=== PATIENT | female | born 1955 | race African-American/Black ===

== ENCOUNTER 2021-08-14 13:43 | Emergency (ER) | payer MEDICARE, OTHER ==
[~2021-08-14] VITALS: Ht 160 cm; Wt 104.3 kg
[~2021-08-14 13:43] MED LIST: ATOR20TA; CALC-30; METH10TA87; METO-158; TRIA25CA; VIT B12
[2021-08-14 15:57] LABS: Basophils # (auto) 0 10 ^3/uL (0-0.2); Basophils % (auto) 0.3 % (0.0-2.0); Eosinophils # (auto) 0.1 10 ^3/uL (0-0.8); Eosinophils % (auto) 1.4 % (0.0-7.0); Hematocrit 39.1 % (36.0-46.0); Hemoglobin 13.3 g/dL (12.2-16.2); Lymphocytes # (auto) 1.8 10 ^3/uL (0.4-5.4); Lymphocytes % (auto) 19.6 % (10.0-50.0); Mean Corpuscular Hemoglobin 30.3 pg (28.0-32.0); Mean Corpuscular Volume 89.2 fL (80.0-100.0); Monocytes # (auto) 0.6 10 ^3/uL (0-1.3); Monocytes % (auto) 6.1 % (0.0-12.0); Neutrophils # (auto) 6.6 10 ^3/uL (1.6-8.6); Neutrophils % (auto) 72.6 % (37.0-80.0); Nucleated Red Blood Cells % 0.1 %; Red Blood Cells 4.39 10^6/uL (4.0-5.20); Red Cell Distribution Width 14.5 % (11.8-14.3); White Blood Cell 9.1 10^3/uL (4.4-10.8)
[2021-08-14 16:10] LABS: Albumin 3.7 g/dL (3.4-5.0); Calcium 9.1 mg/dL (8.5-10.1); Potassium 4.5 mmol/L (3.5-5.1)
[2021-08-14 16:18] LABS: BUN/Creatinine Ratio 15.3; Bilirubin, Total 0.3 mg/dL (0.2-1.0); Total Protein 8.4 g/dL (6.4-8.2)
[2021-08-14 17:12] VITALS: BP 139/73
[2021-08-14 17:14] LABS: Urine Bacteria FEW /hpf (None Seen); Urine Blood Negative /uL (Negative); Urine Hyaline Cast FEW /lpf (0 - 2); Urine Mucus FEW (None Seen); Urine WBC 3 /hpf (0 - 5)
== END 2021-08-14 17:20 | disposition home or self-care (01) ==
LOC: ER 13:43 → EDBD 13:43 → ER 17:20
DX: R55 Syncope and collapse (principal); I10 Essential (primary) hypertension; E03.9 Hypothyroidism, unspecified; E78.5 Hyperlipidemia, unspecified; J45.909 Unspecified asthma, uncomplicated; Z79.899 Other long term (current) drug therapy; Z88.5 Allergy status to narcotic agent
CPT/HCPCS: 36415; 70450; 71045; 72125; 80053; 81001; 83735; 84484; 85025; 93005

== ENCOUNTER 2025-01-23 11:11 | Inpatient (IN) | payer MEDICARE, OTHER ==
[~2025-01-23] VITALS: Ht 160 cm; Wt 113.0 kg
[2025-01-23] VITALS (7 sets, daily range): BP systolic 122–129; BP diastolic 76–82; PULSE 11–90; RESP 11–20; TEMP 97.5–97.6; O2SAT 95–98
[~2025-01-23 11:11] MED LIST changes: -TRIA25CA
--- NOTE | 2025-01-23 11:23 | ED.PDOC ---
Altered Mental Status HPI Comments 69 y.o female with PMHx of DM, HTN, hyperlipidemia, CKF, and thyroid disease, presents to the ED via EMS for an evaluation of a near syncopal episode today at home. Patient was in the kitchen cooking when she developed spontaneous onset generalized weakness and sweats. Patient is unable to recall anything after her symptoms presented. Patient denies any chest pain, SOB, fever, chills, dysuria. Chief Complaint: Syncope Time Seen by MD: 11:09 Primary Care Provider: NONE Reviewed Notes: Nurses Notes, Software Implementation Specialist Notes, Medications, Allergies Allergies: Coded Allergies: Ibuprofen (Verified Allergy, Severe, 01/23/25) Lisinopril (Verified Allergy, Severe, 01/23/25) Codeine (Verified Allergy, Unknown, HALLUCINATE, 08/14/21) Home Meds Reported Medications Metoprolol Tartrate (Metoprolol Tartrate) 50 Mg Tab 12/04/12 Atorvastatin Calcium (Lipitor) 20 Mg Tab 12/04/12 [Calcium] (Calcium) No Conflict Check 12/04/12 Methimazole (Tapazole) 10 Mg Tab 12/04/12 [Vit B12] No Conflict Check 12/04/12 Information Source: Patient, Emergency Med Personnel Mode of Arrival: EMS Severity: Moderate Timing: Hours Duration: Since onset Prehospital treatment: 12 Lead EKG, Geophysical Prospecting Permit Agent Quality: Decreased Alertness, Change in Behavior Recent: Other History of: Diabetes Associated Signs and Symptoms: Other Past Medical History PAST MEDICAL HISTORY: Asthma, CKF, DM, High Lipids, HTN, Thyroid Surgical History: BTL, , Thyroidectomy Surgical History (Other): cataracts FIRMWARE SOFTWARE VERIFICATION ENGINEER History: No Pertinent FIRMWARE SOFTWARE VERIFICATION ENGINEER History Family History Family History: No family hx of DM, No family hx of Heart reginaldo, No family hx of HTN Social History Smoker: Non-Smoker Alcohol: Denies ETOH Use Drugs: Denies Drug Use Lives In: Home Constitutional: reports: malaise, sweats, weakness; denies: chills, diaphoresis, fatigue, fever, others EENTM: denies: blurred vision, double vision, ear bleeding, ear discharge, ear drainage, ear pain, ear ringing, eye pain, eye redness, hearing loss, mouth pain, mouth swelling, nasal discharge, nose bleeding, nose congestion, nose pain, photophobia, tearing, throat pain, throat swelling, voice changes, others Respiratory: denies: cough, hemoptysis, orthopnea, SOB at rest, shortness of breath, SOB with excertion, stridor, wheezing, others Cardiovascular: reports: syncope; denies: chest pain, dizzy spells, diaphoresis, Dyspnea on exertion, edema, irregular heart beat, left arm pain, lightheadedness, palpitations, PND, others Gastrointestinal: denies: abdomen distended, abdominal pain, blood streaked bowels, constipated, diarrhea, dysphagia, difficulty swallowing, hematemesis, melena, nausea, poor appetite, poor fluid intake, rectal bleeding, rectal pain, vomiting, others Genitourinary: denies: abnormal vagina bleeding, burning, dyspareunia, dysuria, flank pain, frequency, hematuria, incontinence, pain, , vagina discharge, urgency, others Neurological: denies: dizziness, fainting, headache, left sided numbness, left sided weakness, numbness, paresthesia, pre-existing deficit, right sided numbness, right sided weakness, seizure, speech problems, tingling, tremors, weakness, others Musculoskeletal: denies: back pain, gout, joint pain, joint swelling, muscle pain, muscle stiffness, neck pain, others Integumetry: denies: bruises, change in color, change in hair/nails, dryness, laceration, lesions, lumps, rash, wounds, others Allergic/Immunocompromised: denies: Difficulty Healing, Frequent Infections, Hives, Itching, others Hematologic/Lymphatic: denies: anemia, blood clots, easy bleeding, easy bruising, swollen glands, others Endocrine: denies: excessive hunger, excessive sweating, excessive thirst, excessive urination, flushing, intolerance to cold, intolerance to heat, unexplained weight gain, unexplained weight loss, others Psychiatric: denies: anxiety, bipolar disorder, depression, hopeless, panic disorder, schizophrenia, sleepless, suicidal, others All Other Systems: Reviewed and Negative Physical Exam General Appearance: Moderate Distress HEENT: Normal ENT Inspection, Pharynx Normal, TMs Normal Neck: Full Range of Motion, Non-Tender, Normal, Normal Inspection Respiratory: Chest Non-Tender, Lungs Clear, No Accessory Muscle Use, No Respiratory Distress, Normal Breath Sounds Cardiovascular: Bradycardia, No Edema, No JVD, No Murmur, No Gallop, Normal Peripheral Pulses Breast Exam: Deferred Gastrointestinal: No Organomegaly, Non Tender, No Pulsatile Mass, Normal Bowel Sounds, Soft Genitalia: Deferred Pelvic: Deferred Rectal: Deferred Extremities: No calf tenderness, Normal capillary refill, Normal inspection, Normal range of motion, Non-tender, No pedal edema Musculoskeletal : Apperance: Normal Neurologic: Alert Cerebellar Function: NOT DONE Reflexes: NOT DONE Skin: Dry, Normal Color, Warm Peripheral Pulses: 3+ Radial (R), 3+ Radial (L) Lymphatic: No Adenopathy EKG EKG : Pulse Rate (adult): 55 Cardiac Rhythm: NSR Was a procedure done? Was a procedure done?: No Differential Diagnosis (ALOC) Differential Diagnosis: Dehydration, Encephalopathy, Hypoxemia, Heart Failure X-Ray, Labs, Meds, VS Vital Signs Date Time Temp Pulse Resp B/P (MAP) Pulse Ox O2 Delivery O2 Flow Rate FiO2 01/23/25 11:23 55 01/23/25 11:16 98.3 68 18 120/75 (90) 96 98.3 01/23/25 11:15 55 Lab Test 01/23/25 11:27 Range/Units White Blood Count 7.7 4.4-10.8 10^3/uL Red Blood Count 4.50 4.0-5.20 10^6/uL Hemoglobin 13.6 12.2-16.2 g/dL Hematocrit 40.1 36.0-46.0 % Mean Corpuscular Volume 89.1 80.0-100.0 fL Mean Corpuscular Hemoglobin 30.2 28.0-32.0 pg Mean Corpuscular Hemoglobin Concent 33.9 32.0-36.0 g/dL Red Cell Distribution Width 14.8 H 11.8-14.3 % Platelet Count 216 140-450 10^3/uL Mean Platelet Volume 7.6 6.9-10.8 fL Neutrophils (%) (Auto) 66.8 37.0-80.0 % Lymphocytes (%) (Auto) 21.1 10.0-50.0 % Monocytes (%) (Auto) 6.9 0.0-12.0 % Eosinophils (%) (Auto) 4.9 0.0-7.0 % Basophils (%) (Auto) 0.3 0.0-2.0 % Neutrophils # (Auto) 5.2 1.6-8.6 10 ^3/uL Lymphocytes # (Auto) 1.6 0.4-5.4 10 ^3/uL Monocytes # (Auto) 0.5 0-1.3 10 ^3/uL Eosinophils # (Auto) 0.4 0-0.8 10 ^3/uL Basophils # (Auto) 0 0-0.2 10 ^3/uL Nucleated Red Blood Cells 0.1 % Sodium Level Pending Potassium Level Pending Chloride Level Pending Carbon Dioxide Level Pending Anion Gap Pending Blood Urea Nitrogen Pending Creatinine Pending Glomerular Filtration Rate Calc Pending BUN/Creatinine Ratio Pending Serum Glucose Pending Calcium Level Pending Troponin I High Sensitivity Pending Patient alert. Complaining of dizziness. Possible syncope prior to coming. Vitals stable. WBC within normal limits. Hemoglobin within normal limits. EKG does show bradycardia. Reviewed her history. Has a risk factors for coronary artery disease. Echocardiogram. Explained to the patient. Continue monitoring. Time of 1ST Reevaluation: 12:00 Reevaluation 1ST: Unchanged Patient Education/Counseling: Diagnosis, Treatment, Prognosis Family Education/Counseling: No Family Present Departure 1 Departure Time of Disposition: 11:58 Impression: Primary Impression: Symptomatic bradycardia Additional Impression: Autonomic disorder Disposition: ADMITTED INPATIENT Admit to: Med Surg Condition: Guarded Critical Care Note Critical Care Time?: Yes (90 min-critical care time only) Critical care comment: Symptomatic bradycardia continue to monitor Stability Stability form required: No Heart Score Heart Score: Heart Score Response (Comments) Value History Slightly Suspicious 0 EKG Normal 0 Age >65 2 Risk Factors No known risk factors 0 Troponin Normal limit 0 Total 2 I personally scribed for BEATRIZ CARRIZALES MD ([email or web address]) on 01/23/25 at 11:23. Electronically submitted by Jackie Bernabe ([facility]). BEATRIZ CARRIZALES MD Jan 23, 2025 11:23
[2025-01-23 11:44] LABS: Basophils # (auto) 0 10 ^3/uL (0-0.2); Basophils % (auto) 0.3 % (0.0-2.0); Eosinophils # (auto) 0.4 10 ^3/uL (0-0.8); Eosinophils % (auto) 4.9 % (0.0-7.0); Hematocrit 40.1 % (36.0-46.0); Hemoglobin 13.6 g/dL (12.2-16.2); Lymphocytes # (auto) 1.6 10 ^3/uL (0.4-5.4); Lymphocytes % (auto) 21.1 % (10.0-50.0); Mean Corpuscular Hemoglobin 30.2 pg (28.0-32.0); Mean Corpuscular Hgb Conc. 33.9 g/dL (32.0-36.0); Mean Corpuscular Volume 89.1 fL (80.0-100.0); Monocytes # (auto) 0.5 10 ^3/uL (0-1.3); Monocytes % (auto) 6.9 % (0.0-12.0); Neutrophils # (auto) 5.2 10 ^3/uL (1.6-8.6); Neutrophils % (auto) 66.8 % (37.0-80.0); Nucleated Red Blood Cells % 0.1 %; Platelet Count (auto) 216 10^3/uL (140-450); Red Cell Distribution Width 14.8 % (11.8-14.3); White Blood Cell 7.7 10^3/uL (4.4-10.8)
[2025-01-23 11:55] LABS: Potassium 4.1 mmol/L (3.5-5.1); Sodium 141 mmol/L (136-145)
[2025-01-23 11:56] LABS: Anion Gap 8 (5-15); Calcium 9.8 mg/dL (8.7-10.4); Carbon Dioxide 24 mmol/L (20-31)
[2025-01-23 12:01] LABS: BUN/Creatinine Ratio 10.4 (10.0-20.0); Blood Urea Nitrogen 22 mg/dL (9-23); Chloride 109 mmol/L (98-107)
[2025-01-23 12:02] LABS: Glucose 158 mg/dL (74-106)
[2025-01-23 12:51] LABS: Urine Bacteria None Seen /hpf (None Seen)
[2025-01-23 13:01] LABS: Urine Blood Negative /uL (Negative); Urine Clarity Clear (Clear); Urine Color Light-Yellow (Yellow); Urine Protein, UAD 1+ (Negative); Urine Specific Gravity 1.027 (1.001-1.035); Urine Squamous Epithelial Cell FEW /hpf (<5); Urine Urobilinogen Normal (Negative); Urine WBC 1 /HPF (0-5)
--- NOTE | 2025-01-23 13:18 | DVHHP2 ---
History of Present Illness Reason for Visit: syncopal episode History of Present Illness 69 yr old graves disease, thyroid disease, htn, dm, ckd stage 4, hld cad denies any surgical history cc pt states had a syncopal episodes today. Patient states that she was in the kitchen getting ready to cook her some food she sta jocy she started feel weak and sweaty prior to the her legs getting weak and then she had fallen. Patient states she did not remember anything after her fall when she do remember being diaphoretic and sweaty prior to the incident patient does admit to she went to [place] yesterday and they did a vascular carotid ultrasound at the hospital she states she did not drink much yesterday at all so she might have gotten a little bit dehydrated and she did not eat breakfast in the morning after sleeping all day so she felt these might contributed to her fall she states she did take her medications for diabetes but when paramedics arrived her glucose was 170 in her blood pressure was good. She also states she usually will have a syncopal episode from low blood pressure patient does see a cooky packer at [facility] she is due to have an echocardiogram in two weeks she currently denies any headache no dizziness. She denies any abdominal pain no vomiting no black stools or blood in her stools when evaluating patient's chart as it appears patient was admitted in February of 2023 for syncopal episode at that time she was on hydrochlorothiazide and they DC that they thought her fall might be related to blood pressure meds at that time she also had an echo completed February 2023 EF 65%. When evaluating labs CBC was unremarkable creatinine was 2.11 glucose 158 otherwise CMP unremarkable troponin was negative UA was unremarkable only shows glucose with these findings we will admit patient for cardiac workup for syncope. Past Medical History Graves disease thyroid disease hypertension diabetes CKD stage 4 hyperlipidemia CAD Past Surgical History denies any surgical history Family History Reviewed, non-contributory to the management of this case. Past Social History The patient lives at home, denies smoking, alcohol or illicit drugs abuse. Review of Systems Constitutional: No: Fever, Chills, Sweats, Weakness, Malaise, Other Eyes: No: Pain, Vision change, Conjunctivae inflammation, Eyelid inflammation, Other, Redness ENT: No: Ear pain, Ear discharge, Nose pain, Nose discharge, Nose congestion, Mouth pain, Mouth swelling, Throat pain, Throat swelling, Other Respiratory: No: Cough, Dry, Shortness of breath, SOB with excertion, Wheezing, Hemoptysis, Pleuritic Pain, Sputum, Wheezing, Other Cardiovascular: No: Chest Pain, Palpitations, Orthopnea, Paroxysmal Noc. Dyspnea, Edema, Lt Headedness, Other Gastrointestinal: No: Nausea, Vomiting, Abdominal Pain, Diarrhea, Constipation, Melena, Hematochezia, Other Genitourinary: No Dysuria, No Frequency, No Incontinence, No Hematuria, No Retention, No Other Musculoskeletal: No: other, neck pain, shoulder pain, arm pain, back pain, hand pain, leg pain, foot pain Skin: No: Rash, Lesions, Jaundice, Bruising, Other Neurological: Weakness, Other (headache ); No: Numbness, Incoordination, Change in speech, Confusion, Seizures Allergies: Coded Allergies: Ibuprofen (Verified Allergy, Severe, 01/23/25) Lisinopril (Verified Allergy, Severe, 01/23/25) Codeine (Verified Allergy, Unknown, HALLUCINATE, 08/14/21) Exam Vital Signs Vital Signs Date Time Temp Pulse Resp B/P (MAP) Pulse Ox O2 Delivery O2 Flow Rate FiO2 01/23/25 12:00 67 01/23/25 11:16 98.3 18 120/75 (90) 96 98.3 General Appearance: Alert, Oriented X3, Cooperative, No acute distress HEENT: Atraumatic, PERRLA, EOMI, Mucous membr. moist/pink Respiratory: Clear to auscultation, Normal air movement Cardiovascular: Regular rate, Normal S1, Normal S2, No murmurs Abdominal: Normal bowel sounds, Soft, No tenderness, No hepatospenomegaly, No masses Extremities: No clubbing, No cyanosis, No edema, Normal pulses, No tenderness/swelling Skin: No rashes, No breakdown, No significant lesion Neuro: Normal gait, Normal speech, Strength at 5/5 X4 ext, Normal tone, Sensation intact, Cranial nerves 3-12 NL Psych/Mental Status: Mental status NL, Mood NL Labs/Xrays I reviewed labs, imaging CT scan abdomen pelvis, EKG and all diagnostic studies on this patient from ED records and the medical chart Labs Test 01/23/25 12:18 01/23/25 11:30 01/23/25 11:27 Range/Units POC Glucose 139 H 70-106 mg/dl Urine Color Light-yellow Yellow Urine Clarity Clear Clear Urine pH 7.0 5.0-9.0 Urine Specific [place] 1.027 1.001-1.035 Urine Protein 1+ H Negative Urine Ketones Negative Negative Urine Blood Negative Negative /uL Urine Nitrite Negative Negative Urine Bilirubin Negative Negative Urine Urobilinogen Normal Negative mg/dL Urine Leukocyte Esterase Negative Negative /uL Urine RBC 1 0 - 4 /hpf Urine Microscopic WBC 1 0-5 /HPF Urine Squamous Epithelial Cells Few <5 /hpf Urine Bacteria None seen None Seen /hpf Urine Glucose 4+ H Normal mg/dL White Blood Count 7.7 4.4-10.8 10^3/uL Red Blood Count 4.50 4.0-5.20 10^6/uL Hemoglobin 13.6 12.2-16.2 g/dL Hematocrit 40.1 36.0-46.0 % Mean Corpuscular Volume 89.1 80.0-100.0 fL Mean Corpuscular Hemoglobin 30.2 28.0-32.0 pg Mean Corpuscular Hemoglobin Concent 33.9 32.0-36.0 g/dL Red Cell Distribution Width 14.8 H 11.8-14.3 % Platelet Count 216 140-450 10^3/uL Mean Platelet Volume 7.6 6.9-10.8 fL Neutrophils (%) (Auto) 66.8 37.0-80.0 % Lymphocytes (%) (Auto) 21.1 10.0-50.0 % Monocytes (%) (Auto) 6.9 0.0-12.0 % Eosinophils (%) (Auto) 4.9 0.0-7.0 % Basophils (%) (Auto) 0.3 0.0-2.0 % Neutrophils # (Auto) 5.2 1.6-8.6 10 ^3/uL Lymphocytes # (Auto) 1.6 0.4-5.4 10 ^3/uL Monocytes # (Auto) 0.5 0-1.3 10 ^3/uL Eosinophils # (Auto) 0.4 0-0.8 10 ^3/uL Basophils # (Auto) 0 0-0.2 10 ^3/uL Nucleated Red Blood Cells 0.1 % Sodium Level 141 136-145 mmol/L Potassium Level 4.1 3.5-5.1 mmol/L Chloride Level 109 H 98-107 mmol/L Carbon Dioxide Level 24 20-31 mmol/L Anion Gap 8 5-15 Blood Urea Nitrogen 22 9-23 mg/dL Creatinine 2.11 H 0.550-1.02 mg/dL Glomerular Filtration Rate Calc 25 >90 mL/min BUN/Creatinine Ratio 10.4 10.0-20.0 Serum Glucose 158 H 74-106 mg/dL Calcium Level 9.8 8.7-10.4 mg/dL Troponin I High Sensitivity < 3 L </=34 ng/L Assessment/Plan Assessment/Plan Acute syncopal episode CT the brain is negative ordered echocardiogram if abnormal consider cards consult reviewed echo from 02/2023 ef 65% Follow-up carotid Doppler ordered Orthostatic vital signs Fall precautions ordered PT eval and treat trop negative, cont to trend trops ekg no stemi ordered IV fluids Fall precautions ordered tsh and mag and phos chronic problems graves disease hypothyroidism will order tsh htn dm ISS ckd stage 3 hld cad fen/ppx diet no gi ppx since no hx of gerds/gi bleed scd ivf gentle hydration plan admit to tele syncope workup Plan discussed with: Patient Date of Service: Jan 23, 2025 Billing Provider: MEY CAMARENA DNP Common Visit Codes: [id number] INP/OBS CARE (HIGH) MEY CAMARENA DNP Jan 23, 2025 13:17
[2025-01-23] MEDS ORDERED: DEXTROSE (50%) 50ML SYRG IV PRN (15:15)
[2025-01-23] MEDS ORDERED: ONDANSETRON HCL 4 MG/2 ML VIAL IV PRN (15:15)
[2025-01-23] MEDS ORDERED: MORPHINE SULFATE INJ 2 MG/ml SYRG IV PRN (15:15)
[2025-01-23] MEDS ORDERED: DOCUSATE SOD 100 MG CAP PO PRN (15:15)
[2025-01-23] MEDS ORDERED: NITROGLYCERIN 0.4 MG SL TAB SL PRN (15:15)
--- NOTE | 2025-01-23 15:53 | DVH ---
EXAM: CT HEAD WITHOUT CONTRAST HISTORY: acute dizziness COMPARISON: CT HEAD WITHOUT CONTRAST on DOS: 03/12/23, HEAD WITHOUT CONTRAST on DOS: 08/14/21 TECHNIQUE: Axial images of the head were obtained and reformatted in coronal and sagittal planes. All CT scans at this medical facility are performed using dose modulation techniques as appropriate t o a performed exam including the following: Automated exposure control was utilized; adjustment of th e MA and/or KV according to patient size; and use of iterative reconstruction technique. CT Dose: CTDI volume is 59.21 mGy. Dose-length product is 1048.36 mGy*cm FINDINGS: There is no evidence of acute intracranial hemorrhage, mass, mass effect midline shift. There is no h ydrocephalus or extra-axial fluid collection. There are patchy chronic microvascular ischemic changes in the supratentorial white matter. Swift-white matter differentiation is maintained. The visualized paranasal sinuses and mastoid air cells are clear. The calvarium is intact. IMPRESSION: 1. No acute intracranial process. HS:Y
[2025-01-23] MEDS: SODIUM CHLORIDE 0.9% 1,000 ML IV SCH (16:00)
[2025-01-23] MEDS: ENOXAPARIN SOD 30 MG/0.3 ML SYRINGE SC SCH (16:01)
[2025-01-23 16:08] LABS: Magnesium 2.2 mg/dL (1.6-2.6)
[2025-01-23 16:09] LABS: Phosphorus 3.6 mg/dL (2.4-5.1)
--- NOTE | 2025-01-23 16:32 | DVH ---
EXAM: US Duplex Bilateral Extracranial Arteries CLINICAL INDICATION: near syncope TECHNIQUE: Real-time duplex ultrasound scan of the extracranial arteries integrating B-mode two-dime nsional vascular structure, Doppler spectral analysis and color flow Doppler imaging. CONTRAST: COMPARISON: US CAROTID DUPLX W COLOR DOP on DOS: 03/13/23 FINDINGS: RIGHT COMMON CAROTID ARTERY: Unremarkable. No occlusion or significant stenosis on color flow and spectral Doppler imaging. Peak systolic velocity in the right common carotid artery (CCA) is 76 cm/s . RIGHT INTERNAL CAROTID ARTERY: Unremarkable. No occlusion or significant stenosis on color flow an d spectral Doppler imaging. Peak systolic velocity in the right internal carotid artery (ICA) is 98 cm/s. RIGHT EXTERNAL CAROTID ARTERY: Unremarkable. No occlusion or significant stenosis on color flow an d spectral Doppler imaging. RIGHT VERTEBRAL ARTERY: Unremarkable. Antegrade flow. RIGHT ICA/CCA RATIO: Unremarkable. The ICA/CCA peak systolic velocity ratio is 1.3 on the right. LEFT COMMON CAROTID ARTERY: Unremarkable. No occlusion or significant stenosis on color flow and s pectral Doppler imaging. Peak systolic velocity in the left common carotid artery (CCA) is 25 cm/s. LEFT INTERNAL CAROTID ARTERY: Peak systolic velocity in the left internal carotid artery (ICA) is 2 99 cm/s. No occlusion or significant stenosis on color flow and spectral Doppler imaging. LEFT EXTERNAL CAROTID ARTERY: Unremarkable. No occlusion or significant stenosis on color flow and spectral Doppler imaging. LEFT VERTEBRAL ARTERY: Unremarkable. Antegrade flow. LEFT ICA/CCA RATIO: The ICA/CCA peak systolic velocity ratio is 11.7 on the left. LYMPH NODES: Unremarkable. No lymphadenopathy. OTHER FINDINGS: . . CAROTID STENOSIS REFERENCE USING IAC CRITERIA: Mild - <50% stenosis. ICA PSV is less than 180 cm/s and plaque or intimal thickening is visible. Moderate - 50-69% stenosis. ICA PSV is 180 to 230 cm/s and plaque is visible. Severe - 70-94% stenosis. ICA PSV is more than 230 cm/s and visible plaque with lumen narrowing is s een. Near occlusion - 95-99% stenosis. ICA PSV is variable and significant plaque with luminal narrowing is seen. Occluded - 100% stenosis. No flow identified. IMPRESSION: 70-94% stenosis in the left internal carotid artery due to atherosclerotic plaque.
[2025-01-23] MEDS: InsuLIN REG 1unit/0.01ml Soln (100units/ml) SC SCH (17:00)
[2025-01-23] MEDS: ACCU-CHEK COMFORT CURVE STRIP VI SCH (17:00)
--- NOTE | 2025-01-23 17:39 | ECG ---
[facility] Test Date: 2025-01-23 Test Time: 11:15:04 Pat Name: VEL GAVIN Department: ED Room: 0249T B Gender: F Medical Billing Instructor: HAM : 1955 Requested By: BEATRIZ CARRIZALES Order Number: [id number] Reading MD: Chris Orellana Measurements Intervals [place] Rate: 55 P: 95 OR: 233 QRS: 70 QRSD: 79 T: 46 QT: 409 QTc: 392 Interpretive Statements Sinus arrhythmia Prolonged OR interval Low voltage, precordial leads Electronically Signed On 01-24-2025 9:34:46 PDT by Chris Orellana Please click the below link to view image of tracing.
[2025-01-23] MEDS: ATORVASTATIN 20 MG TAB PO SCH (21:05)
[2025-01-24] VITALS (8 sets, daily range): BP systolic 111–144; BP diastolic 69–94; PULSE 56–80; RESP 16–20; TEMP 97.5–98.1; O2SAT 97–98
[2025-01-24 06:36] LABS: Basophils # (auto) 0 10 ^3/uL (0-0.2); Basophils % (auto) 0.2 % (0.0-2.0); Eosinophils # (auto) 0.4 10 ^3/uL (0-0.8); Eosinophils % (auto) 4.4 % (0.0-7.0); Hematocrit 35.5 % (36.0-46.0); Hemoglobin 12.2 g/dL (12.2-16.2); Lymphocytes # (auto) 1.9 10 ^3/uL (0.4-5.4); Lymphocytes % (auto) 23.5 % (10.0-50.0); Mean Corpuscular Hemoglobin 30.5 pg (28.0-32.0); Mean Corpuscular Hgb Conc. 34.4 g/dL (32.0-36.0); Mean Corpuscular Volume 88.7 fL (80.0-100.0); Monocytes # (auto) 0.7 10 ^3/uL (0-1.3); Monocytes % (auto) 8.3 % (0.0-12.0); Neutrophils # (auto) 5.1 10 ^3/uL (1.6-8.6); Neutrophils % (auto) 63.6 % (37.0-80.0); Platelet Count (auto) 184 10^3/uL (140-450); Red Cell Distribution Width 14.5 % (11.8-14.3)
[2025-01-24 06:46] LABS: Albumin 3.9 g/dL (3.2-4.8); Alkaline Phosphatase 112 U/L (46-116); Anion Gap 8 (5-15); BUN/Creatinine Ratio 10.3 (10.0-20.0); Blood Urea Nitrogen 19 mg/dL (9-23); Calcium 9.4 mg/dL (8.7-10.4); Carbon Dioxide 24 mmol/L (20-31); Potassium 4.2 mmol/L (3.5-5.1); Sodium 143 mmol/L (136-145); Total Protein 6.6 g/dL (5.7-8.2)
[2025-01-24 06:52] LABS: Alanine Aminotransferase < 9 U/L (7-40); Aspartate Aminotransferase 8 U/L (13-40); Bilirubin, Total 0.3 mg/dL (0.2-1.0); Chloride 111 mmol/L (98-107); Glucose 111 mg/dL (74-106)
--- NOTE | 2025-01-24 12:15 | DVHPN2 ---
Subjective 69-year-old female came with a syncopal episode Changes from previous H/P or p: Changes Eyes: No Pain, No Vision change, No Conjunctivae inflammation, No Eyelid inflammation, No Other, No Redness ENT: No Ear pain, No Ear discharge, No Nose pain, No Nose discharge, No Nose congestion, No Mouth pain, No Mouth swelling, No Throat pain, No Throat swelling, No Other Cardiovascular: No Chest Pain, No Palpitations, No Orthopnea, No Paroxysmal Noc. Dyspnea, No Edema, No Lt Headedness, No Other Respiratory: No Cough, No Dry, No Shortness of breath, No SOB with excertion, No Wheezing, No Hemoptysis, No Pleuritic Pain, No Sputum, No Other Gastrointestinal: No Nausea, No Vomiting, No Abdominal Pain, No Diarrhea, No Constipation, No Melena, No Hematochezia, No Other Genitourinary: No Dysuria, No Frequency, No Incontinence, No Hematuria, No Retention, No Other Musculoskeletal: No other, No neck pain, No shoulder pain, No arm pain, No back pain, No hand pain, No leg pain, No foot pain Skin: No Rash, No Lesions, No Jaundice, No Bruising, No Other Objective Vitals Vital Signs Date Time Temp Pulse Resp B/P (MAP) Pulse Ox O2 Delivery O2 Flow Rate FiO2 01/24/25 09:00 98.1 66 16 113/77 (89) 98 98.1 01/24/25 08:00 Room Air* 0 21 Intake/Output Intake and Output 01/24/25 07:00 Intake Total 600 ml Balance 600 ml Intake Oral 600 ml # Voids 4 General Appearance: Alert, Oriented X3, Cooperative Lungs: Clear to auscultation, Normal air movement Chest/Breasts: Discharge Cardiovascular: Regular rate, Normal S1, Normal S2, No murmurs Abdomen: Normal bowel sounds, Soft, No tenderness Extremities: No edema Medications Current Medications Medications Dose Ordered Sig/Billy Route Start Time Stop Time Status Last Admin Dose Admin Atorvastatin Calcium 20 mg HS PO 01/23/25 22:00 01/23/25 21:05 20 MG Sodium Chloride 1,000 ml @ 70 mls/hr [id number] IV 01/23/25 15:15 01/23/25 21:09 70 MLS/HR Ondansetron HCl 4 mg Q4HP PRN IV 01/23/25 15:15 Docusate Sodium 100 mg BIDPRN PRN PO 01/23/25 15:15 Morphine Sulfate 2 mg Q4HPRN PRN IV 01/23/25 15:15 Hold Enoxaparin Sodium 30 mg DAILY SC 01/23/25 15:29 01/24/25 09:15 30 MG Nitroglycerin 0.4 mg Q5MINP PRN SL 01/23/25 15:15 Diagnostic Test (Pha) 1 strip ACHS 01/23/25 17:00 01/24/25 11:54 1 STRIP Insulin Human Regular ACHS SC 01/23/25 17:00 Dextrose 50 ml UD PRN IV 01/23/25 15:15 Laboratory Results Laboratory Tests 01/24/25 05:45 Chemistry Test 01/24/25 05:45 Albumin 3.9 g/dL (3.2-4.8) Calcium Level 9.4 mg/dL (8.7-10.4) Total Protein 6.6 g/dL (5.7-8.2) LFT Test 01/24/25 05:45 Alanine Aminotransferase (ALT) < 9 U/L (7-40) Alkaline Phosphatase 112 U/L (46-116) Aspartate Amino Transferase (AST) 8 U/L (13-40) L Total Bilirubin 0.3 mg/dL (0.2-1.0) Urinalysis Test 01/23/25 11:30 Urine Color Light-yellow (Yellow) Urine Clarity Clear (Clear) Urine pH 7.0 (5.0-9.0) Urine Specific [place] 1.027 (1.001-1.035) Urine Protein 1+ (Negative) H Urine Ketones Negative (Negative) Urine Blood Negative /uL (Negative) Urine Nitrite Negative (Negative) Urine Bilirubin Negative (Negative) Urine Urobilinogen Normal mg/dL (Negative) Urine Leukocyte Esterase Negative /uL (Negative) Urine RBC 1 /hpf (0 - 4) Urine Microscopic WBC 1 /HPF (0-5) Urine Squamous Epithelial Cells Few /hpf (<5) Urine Bacteria None seen /hpf (None Seen) Urine Glucose 4+ mg/dL (Normal) H Assessment/Plan Assessment/Plan Syncope Left carotid stenosis Hypothyroidism History of hyperthyroidism status post thyroidectomy Hypertension Type 2 diabetes Chronic kidney disease stage IV Plan Continue IV fluids normal saline Lipitor Aspirin Echocardiogram Cardiology consult Monitor closely Full code The rest of the management will depend on the hospital course Advance directives discussed for 18 minutes Plan discussed with: Patient Date of Service: Jan 24, 2025 Billing Provider: TITO MI MD Common Visit Codes: [id number] INP/OBS CARE(HIGH) Secondary Visit Codes: [id number]-[id number] CARE PLAN 30 MINUTES TITO MI MD Jan 24, 2025 12:15
--- NOTE | 2025-01-24 13:48 | DVHINCON2 ---
Date Seen: Jan 24, 2025 Referring Physician MD Naseem Reason for Consultation Syncope History of Present Illness This is a 69-year-old female patient who presents to the emergency room with chief complaint of near syncopal episode. The patient reports that yesterday while she was at home cooking, she suddenly began to feel tired, hot, and diaphoretic. She reports walking over to the couch to sit down and telling her that she did not feel well. The patient's granddaughter and grandson came to assess the patient. The patient reports that at one point she was unable to verbalize what she wanted but was fully aware of her surroundings. She denies any loss of consciousness. EMS was called and the patient was brought to the emergency room for further evaluation. Cardiology has been co nsulted at this time for syncope. Initial twelve lead electrocardiogram reveals sinus arrhythmia with first-degree heart block. The patient denies any cardiac symptoms. Significant past medical history includes hypertension, dyslipidemia, asthma, type 2 diabetes mellitus, thyroid disease status post thyroidectomy, chronic kidney disease, and obesity. Past Medical History Past medical history reviewed. No other significant than mentioned above. Past Surgical History Thyroidectomy Bilateral cataract removal Family History: Patient reports no known family medical history. Family History Family history reviewed. Social History Denies the use of tobacco, alcohol or illicit drugs. Allergies: Coded Allergies: Ibuprofen (Verified Allergy, Severe, 01/23/25) Lisinopril (Verified Allergy, Severe, 01/23/25) Codeine (Verified Allergy, Unknown, HALLUCINATE, 08/14/21) Uncoded Allergies: eggs (Allergy, Unknown, 01/24/25) Home Meds Reported Medications Levocetirizine Hydrochloride (Levocetirizine Dihydrochl) 5 Mg Tab, 5 MG PO, TAB 01/24/25 Amlodipine Besylate (Amlodipine Besylate) 5 Mg Tab, 5 MG PO DAILY, TAB 01/24/25 Levothyroxine Sodium (Levothyroxine Sodium) 88 Mcg Tab, 1 TAB PO DAILY, #30 TAB 5 Refills 01/24/25 Dapagliflozin Propanediol (Dapagliflozin Propanediol) 5 Mg Tab, 5 MG PO, TAB 01/24/25 Famotidine (Famotidine) 40 Mg Tab, 40 MG PO DAILY, TAB 01/24/25 Cholecalciferol (D3-1000) 1,000 Unit Tab, 5000 UNIT PO, TAB 01/24/25 Cyanocobalamin (B-12) 1,000 Mcg Cap, 1000 MCG PO, CAP 01/24/25 Aspirin (Aspirin) 81 Mg Tab, 81 MG PO DAILY, TAB 01/24/25 Isosorbide Mononitrate (Isosorbide Mononitrate Er) 30 Mg Tab, 30 MG PO DAILY for 30 Days, MG 01/24/25 Propranolol Hcl (Inderal La) 60 Mg Cap, 20 MG PO DAILY, CAP 01/24/25 Metoprolol Tartrate (Metoprolol Tartrate) 50 Mg Tab 12/04/12 Atorvastatin Calcium (Lipitor) 20 Mg Tab 12/04/12 [Calcium] (Calcium) No Conflict Check 12/04/12 Methimazole (Tapazole) 10 Mg Tab 12/04/12 [Vit B12] No Conflict Check 12/04/12 Home Meds Home medications reviewed. Current Medications Current Medications Medications (Trade) Dose Ordered Sig/Billy Route PRN Reason Start Time Stop Time Status Last Admin Atorvastatin Calcium (Lipitor) 20 mg HS PO 01/23/25 22:00 01/23/25 21:05 Sodium Chloride 1,000 ml @ 70 mls/hr [id number] IV 01/23/25 15:15 01/23/25 21:09 Ondansetron HCl (Zofran) 4 mg Q4HP PRN IV NAUSEA / VOMITING 01/23/25 15:15 Docusate Sodium (Colace Capsule) 100 mg BIDPRN PRN PO FOR CONSTIPATION 01/23/25 15:15 Morphine Sulfate 2 mg Q4HPRN PRN IV SEVERE PAIN (7-10 PAIN SCALE) 01/23/25 15:15 Hold Enoxaparin Sodium (Lovenox) 30 mg DAILY SC 01/23/25 15:29 01/24/25 09:15 Nitroglycerin (Ntrostat Sublingual) 0.4 mg Q5MINP PRN SL FOR CHEST PAIN 01/23/25 15:15 Diagnostic Test (Pha) (Accu-Chek Comfort Curve T) 1 strip ACHS 01/23/25 17:00 01/24/25 11:54 Insulin Human Regular (InsuLIN R) ACHS SC 01/23/25 17:00 Dextrose 50 ml UD PRN IV Blood Sugar LESS THAN 60 01/23/25 15:15 Aspirin 81 mg DAILY PO 01/25/25 10:00 Review of Systems Constitutional: Generalized weakness Ears, Nose, & Throat: No symptom reported Eyes: No symptom reported Neurological: No symptoms reported Pulmonary/Respiratory: No symptoms reported Cardiovascular: No symptom reported Gastrointestinal: No symptom reported Genitourinary: No symptom reported Musculoskeletal: No symptom reported Skin: No symptom reported Psychiatric: No symptom reported Endocrine: No symptom reported Hematologic/Lymphatic: No symptom reported Vital Signs Vital Signs Date Time Temp Pulse Resp B/P (MAP) Pulse Ox O2 Delivery O2 Flow Rate FiO2 01/24/25 09:00 98.1 66 16 113/77 (89) 98 98.1 01/24/25 08:00 Room Air* 0 21 Physical Exam General Appearance: Cooperative. Well-developed. Well-nourished. No acute distress. Pulmonary/Respiratory: Clear, bilateral breaths sounds. Cardiovascular/Chest: Regular rate and rhythm. Peripheral Pulses: 2+ Radial (R). 2+ Radial (L). 2+ Pedal (R). 2+ Pedal (L) Abdominal Exam: Normal bowel sounds. Ankle Exam: Negative ankle edema Lower extremities: Negative lower extremity edema Neuro/Mental Status: A/OX4, coherent. Thoughts/Psych: Normal thought pattern. Appropriate mood and affect. Good judgment and insight. Appearance: No acute distress. Skin Exam: Normal inspection. Normal color. Warm and dry. Labs/Diagnostic Data Labs Test 01/24/25 11:03 01/24/25 05:45 01/23/25 11:30 01/23/25 11:27 Range/Units POC Glucose 135 H 70-106 mg/dl White Blood Count 8.0 4.4-10.8 10^3/uL Red Blood Count 4.00 4.0-5.20 10^6/uL Hemoglobin 12.2 12.2-16.2 g/dL Hematocrit 35.5 #L 36.0-46.0 % Mean Corpuscular Volume 88.7 80.0-100.0 fL Mean Corpuscular Hemoglobin 30.5 28.0-32.0 pg Mean Corpuscular Hemoglobin Concent 34.4 32.0-36.0 g/dL Red Cell Distribution Width 14.5 H 11.8-14.3 % Platelet Count 184 140-450 10^3/uL Mean Platelet Volume 7.8 6.9-10.8 fL Neutrophils (%) (Auto) 63.6 37.0-80.0 % Lymphocytes (%) (Auto) 23.5 10.0-50.0 % Monocytes (%) (Auto) 8.3 0.0-12.0 % Eosinophils (%) (Auto) 4.4 0.0-7.0 % Basophils (%) (Auto) 0.2 0.0-2.0 % Neutrophils # (Auto) 5.1 1.6-8.6 10 ^3/uL Lymphocytes # (Auto) 1.9 0.4-5.4 10 ^3/uL Monocytes # (Auto) 0.7 0-1.3 10 ^3/uL Eosinophils # (Auto) 0.4 0-0.8 10 ^3/uL Basophils # (Auto) 0 0-0.2 10 ^3/uL Nucleated Red Blood Cells 0.0 % Sodium Level 143 136-145 mmol/L Potassium Level 4.2 3.5-5.1 mmol/L Chloride Level 111 H 98-107 mmol/L Carbon Dioxide Level 24 20-31 mmol/L Anion Gap 8 5-15 Blood Urea Nitrogen 19 9-23 mg/dL Creatinine 1.85 H 0.550-1.02 mg/dL Glomerular Filtration Rate Calc 29 >90 mL/min BUN/Creatinine Ratio 10.3 10.0-20.0 Serum Glucose 111 H 74-106 mg/dL Calcium Level 9.4 8.7-10.4 mg/dL Total Bilirubin 0.3 0.2-1.0 mg/dL Aspartate Amino Transferase (AST) 8 L 13-40 U/L Alanine Aminotransferase (ALT) < 9 7-40 U/L Alkaline Phosphatase 112 46-116 U/L Total Protein 6.6 5.7-8.2 g/dL Albumin 3.9 3.2-4.8 g/dL Urine Color Light-yellow Yellow Urine Clarity Clear Clear Urine pH 7.0 5.0-9.0 Urine Specific [place] 1.027 1.001-1.035 Urine Protein 1+ H Negative Urine Ketones Negative Negative Urine Blood Negative Negative /uL Urine Nitrite Negative Negative Urine Bilirubin Negative Negative Urine Urobilinogen Normal Negative mg/dL Urine Leukocyte Esterase Negative Negative /uL Urine RBC 1 0 - 4 /hpf Urine Microscopic WBC 1 0-5 /HPF Urine Squamous Epithelial Cells Few <5 /hpf Urine Bacteria None seen None Seen /hpf Urine Glucose 4+ H Normal mg/dL Phosphorus Level 3.6 2.4-5.1 mg/dL Magnesium Level 2.2 1.6-2.6 mg/dL Troponin I High Sensitivity < 3 L </=34 ng/L Thyroid Stimulating Hormone (TSH) 6.88 H 0.55-4.78 uIU/mL Assessment Near syncope, rule out cardiac etiology Left internal carotid artery stenosis Hypertension Dyslipidemia Asthma Type 2 diabetes mellitus Thyroid disease status post thyroidectomy Chronic kidney disease Obesity Plan/Recommendation We will continue with the following plan/recommendations (Dr. Del Rio): * Transthoracic echocardiogram reveals EF 55% no severe valve abnormalities * Bilateral carotid ultrasound * 70-94% stenosis in the left internal carotid artery * Recommend neck CT with contrast confirm----unable given poor kidney function * Avoid AV brittni blocking agents * Orthostatic vital signs: Negative * Close Cardiac surveillance Patient seen and examined at bedside with . The patient states that she has been following a vascular doctor at [facility] regarding her carotid stenosis. Patient is scheduled to have a follow up next week at [facility]. There is no further inpatient cardiac workup indicated at this time. Cardiology will sign off. Thank you for allowing us to care for this patient. Please call with any questions or concerns. Critical care time spent: 40 minutes This medical document was created using an electronic medical record system with voice recognition software and computerized dictation system. Although this document has been carefully reviewed, there might still be some phonetic and typographical errors. Occasional wrong-word or ``sound-alike substitutions may have occurred due to the inherent limitations of voice recognition software. These areas are purely typographical due to imperfections of the software programs and do not reflect any compromise in the patient's medical care. Please read the chart carefully and recognize, using context, where these substitutions have occurred. Plan discussed with: Patient NYHA Physical activity limitations: NA Date of Service: Jan 24, 2025 Billing Provider: NEFTALI BARTLETT Cardiology Common Codes: 20238-[id number] INP/OBS CARE (High) Cardiology Consultation Codes: 10745-[id number] CONSULT <45MIN NEFTALI BARTLETT Jan 24, 2025 13:48
[2025-01-24] MEDS: ASPirin 81 mg TAB PO ONE (15:34)
[2025-01-24] MEDS ORDERED: DAPA5TAB2 PO (15:49)
[2025-01-24] MEDS ORDERED: LEVO88TA4 PO (15:49)
[2025-01-24] MEDS ORDERED: PROP60CA34 PO (15:49)
[2025-01-24] MEDS ORDERED: CYAN100056 PO (15:49)
[2025-01-24] MEDS ORDERED: LEVOTAB51 PO (15:49)
[2025-01-24] MEDS ORDERED: ASPI1TAB19 PO (15:49)
[2025-01-24] MEDS ORDERED: FAMO40TA7 PO (15:49)
[2025-01-24] MEDS ORDERED: ISOS1TAB28 PO (15:49)
[2025-01-24] MEDS ORDERED: AMLO1TAB22 PO (15:49)
[2025-01-24] MEDS ORDERED: CHOL1TAB22 PO (15:49)
--- NOTE | 2025-01-24 15:59 | DVHSR ---
APPROVED REPORT EXAM: Two-dimensional and M-mode echocardiogram with Doppler and color Doppler. Blood Pressure: 111/69 mmHg INDICATION Eval for cardiac function and EF RISK FACTORS Height: 5' 3", Weight: 249 DIMENSIONS LVDd4.0 (3.8-5.7cm)LA (2D)3.2 (1.9-4.0cm)Aortic Root2.7 (2.0-3.7cm) LVDs2.7 (2.5-4.0cm)LA (MM) (1.9-4.0cm)Aortic Cusp Exc1.7 (1.5-2.0cm) EF (%) 63.0 (55-70%)Rt. Atrium3.9 (1.9-4.0cm)Asc. Aorta cm IVSd1.0 (0.7-1.1cm)RV (D) (1.8-2.4cm) PWd1.1 (0.7-1.1cm) Mitral Valve MitralMitral Stenosis E wave0.90m/sMV Mean GR.mmHg A wave0.90m/sMV Peak GR.mmHg E/A ratio1.02D MVAcm2 Aortic Valve Aortic ValveAortic Stenosis V10.80m/[place] Mean GR.4mmHg V21.30m/[place] Peak GR.7mmHg LVOT Diameter2.0 (1.8-2.4cm)Doppler AVA1.93cm2 Pulmonic Valve V20.50m/s Tricuspid Valve TR Velocity1.70m/s [id number] Conclusion lvef 55% by visual estimate normal rv function left atrium enlarged no severe valve abnormaliteis noted
[2025-01-25 01:00] VITALS: BP 130/69; PULSE 70; RESP 17; TEMP 98.3; O2SAT 98
[2025-01-25 05:00] VITALS: BP 138/93; PULSE 73; RESP 18; TEMP 98.2; O2SAT 97
[2025-01-25 06:07] LABS: LDL Cholesterol 46 mg/dL (< 100); Triglycerides 101 mg/dL (< 150)
[2025-01-25 06:09] LABS: Cholesterol 111 mg/dL (< 200); HDL Cholesterol 41 mg/dL (40-59)
[2025-01-25 08:00] VITALS: PULSE 52; PULSE 60; RESP 18; O2SAT 97
[2025-01-25 09:00] VITALS: BP 133/75; PULSE 60; RESP 18; TEMP 97.5; O2SAT 97
[2025-01-25] MEDS: ASPirin 81 mg TAB PO SCH (09:14)
[2025-01-25 12:21] VITALS: BP 133/75; PULSE 60; RESP 18; TEMP 97.5; O2SAT 97
[2025-01-25 13:11] VITALS: BP 145/93; PULSE 63; RESP 17; TEMP 97.5; O2SAT 98
--- NOTE | 2025-01-25 14:56 | DVHDS2 ---
Discharge Summary Date of Admission Jan 23, 2025 at 15:08 Date of Discharge: Jan 25, 2025 Labs/Diagnostic Data: Laboratory Results Test 01/25/25 11:53 01/25/25 04:48 01/24/25 05:45 01/23/25 11:30 POC Glucose 144 mg/dl (70-106) Hemoglobin A1c 6.6 % A1C (<5.7) Triglycerides Level 101 mg/dL (< 150) Cholesterol Level 111 mg/dL (< 200) LDL Cholesterol 46 mg/dL (< 100) HDL Cholesterol 41 mg/dL (40-59) White Blood Count 8.0 10^3/uL (4.4-10.8) Red Blood Count 4.00 10^6/uL (4.0-5.20) Hemoglobin 12.2 g/dL (12.2-16.2) Hematocrit 35.5 % (36.0-46.0) Mean Corpuscular Volume 88.7 fL (80.0-100.0) Mean Corpuscular Hemoglobin 30.5 pg (28.0-32.0) Mean Corpuscular Hemoglobin Concent 34.4 g/dL (32.0-36.0) Red Cell Distribution Width 14.5 % (11.8-14.3) Platelet Count 184 10^3/uL (140-450) Mean Platelet Volume 7.8 fL (6.9-10.8) Neutrophils (%) (Auto) 63.6 % (37.0-80.0) Lymphocytes (%) (Auto) 23.5 % (10.0-50.0) Monocytes (%) (Auto) 8.3 % (0.0-12.0) Eosinophils (%) (Auto) 4.4 % (0.0-7.0) Basophils (%) (Auto) 0.2 % (0.0-2.0) Neutrophils # (Auto) 5.1 10 ^3/uL (1.6-8.6) Lymphocytes # (Auto) 1.9 10 ^3/uL (0.4-5.4) Monocytes # (Auto) 0.7 10 ^3/uL (0-1.3) Eosinophils # (Auto) 0.4 10 ^3/uL (0-0.8) Basophils # (Auto) 0 10 ^3/uL (0-0.2) Nucleated Red Blood Cells 0.0 % Sodium Level 143 mmol/L (136-145) Potassium Level 4.2 mmol/L (3.5-5.1) Chloride Level 111 mmol/L (98-107) Carbon Dioxide Level 24 mmol/L (20-31) Anion Gap 8 (5-15) Blood Urea Nitrogen 19 mg/dL (9-23) Creatinine 1.85 mg/dL (0.550-1.02) Glomerular Filtration Rate Calc 29 mL/min (>90) BUN/Creatinine Ratio 10.3 (10.0-20.0) Serum Glucose 111 mg/dL (74-106) Calcium Level 9.4 mg/dL (8.7-10.4) Total Bilirubin 0.3 mg/dL (0.2-1.0) Aspartate Amino Transferase (AST) 8 U/L (13-40) Alanine Aminotransferase (ALT) < 9 U/L (7-40) Alkaline Phosphatase 112 U/L (46-116) Total Protein 6.6 g/dL (5.7-8.2) Albumin 3.9 g/dL (3.2-4.8) Urine Color Light-yellow (Yellow) Urine Clarity Clear (Clear) Urine pH 7.0 (5.0-9.0) Urine Specific [place] 1.027 (1.001-1.035) Urine Protein 1+ (Negative) Urine Ketones Negative (Negative) Urine Blood Negative /uL (Negative) Urine Nitrite Negative (Negative) Urine Bilirubin Negative (Negative) Urine Urobilinogen Normal mg/dL (Negative) Urine Leukocyte Esterase Negative /uL (Negative) Urine RBC 1 /hpf (0 - 4) Urine Microscopic WBC 1 /HPF (0-5) Urine Squamous Epithelial Cells Few /hpf (<5) Urine Bacteria None seen /hpf (None Seen) Urine Glucose 4+ mg/dL (Normal) Test 01/23/25 11:27 Phosphorus Level 3.6 mg/dL (2.4-5.1) Magnesium Level 2.2 mg/dL (1.6-2.6) Troponin I High Sensitivity < 3 ng/L (</=34) Thyroid Stimulating Hormone (TSH) 6.88 uIU/mL (0.55-4.78) Other Laboratory Tests 01/24/25 05:45 Brief Hx & Hospital Course: Final diagnoses: Syncope could be vasovagal versus left carotid stenosis origin Left carotid stenosis , chronic Hypothyroidism History of hyperthyroidism status post thyroidectomy Hypertension Type 2 diabetes Chronic kidney disease stage IV 69-year-old female with a history of chronic kidney disease and left carotid stenosis who sees a vascular surgeon on a regular basis to regarding the left carotid stenosis, came with a syncopal episode Workup included an echocardiogram which showed EF of 55% and no other severe abnormalities noted cardiology saw the patient, recommended it is not a cardiac etiology We did a carotid ultrasound which showed 70-94% stenosis in the left internal carotid artery The patient says she knew about this and she follows with a vascular surgeon at [facility] The patient is asymptomatic now and therefore she can be discharged home to follow up with her primary care physician and with her vascular surgeon as scheduled before Resume the home medications The patient takes aspirin which will be resume Stable for discharge Condition at Discharge: Stable Final Diagnosis/Problems List Syncope, undetermined etiology Left carotid stenosis Hypothyroidism History of hyperthyroidism status post thyroidectomy Hypertension Type 2 diabetes Chronic kidney disease stage IV Discharge Disposition: Home Discharge Instruct/Medications Diet: Consistent carbohydrate, Cardiac 2g Na,low cholest Activity: No Restrictions, As Tolerated Follow Up/Referral: [facility] vascular surgery as scheduled Medications: Continue same home medications including aspirin 81 mg a day Discharge Statement: "Patient was advised to return to the ER or call 911 if any headaches, dizziness, shortness of breath, chest pain, abdominal pain, bleeding, fevers, or worsening of medical condition. Patient was counseled about treatment plan, medications, possible side effects, patientverbalized understanding. All questions were answered to the best of my ability. This discharge took greater then 30 minutes in planning, reviewing documentation, counseling the patient, and discussing with other team members." ASSESSMENT ASSESSMENT Assessment Syncope, undetermined etiology Left carotid stenosis Hypothyroidism History of hyperthyroidism status post thyroidectomy Hypertension Type 2 diabetes Chronic kidney disease stage IV Date of Service: Jan 25, 2025 Billing Provider: TITO MI MD Common Visit Codes: 11963-AFD/OBS DISCH DAY >30min TITO MI MD Jan 25, 2025 14:56
== END 2025-01-25 14:30 | disposition home or self-care (01) | DRG 312 ==
LOC: ER 11:11 → EDBD 11:11 → EDUNIT# 11:11 → OVERFLOW 15:08 → TELE-EAST 15:14
PROVIDERS: ADMIT Internal Medicine Geriatric Medicine; ATTEND Internal Medicine Geriatric Medicine
DX: R55 Syncope and collapse (principal); N18.4 Chronic kidney disease, stage 4 (severe); Z68.41 Body mass index [BMI] 40.0-44.9, adult; I65.22 Occlusion and stenosis of left carotid artery; J45.909 Unspecified asthma, uncomplicated; G90.89 Other disorders of autonomic nervous system; E78.5 Hyperlipidemia, unspecified; I25.10 Atherosclerotic heart disease of native coronary artery without angina pectoris; E11.22 Type 2 diabetes mellitus with diabetic chronic kidney disease; I12.9 Hypertensive chronic kidney disease with stage 1 through stage 4 chronic kidney disease, or unspecified chronic kidney disease; E66.9 Obesity, unspecified; Z88.5 Allergy status to narcotic agent; Z88.6 Allergy status to analgesic agent; Z98.891 History of uterine scar from previous surgery; Z98.51 Tubal ligation status; Z79.82 Long term (current) use of aspirin
CPT/HCPCS: 36415; 70450; 80048; 80053; 80061; 81001; 82962; 83036; 83735; 84100; 84443; 84484; 85025; 93005; 93306; 93886; 96360; 96372; 99291; 99292; G0378